=== PATIENT | male | born 1980 | race African-American/Black ===

== ENCOUNTER 2019-01-19 15:24 | Emergency (ER) | payer OTHER ==
[2019-01-19] MEDS ORDERED: EMS NS 0.9%(*) 1000 ML BAG 1,000 ML IV ONE (15:40)
[2019-01-19] MEDS ORDERED: HYDROMORPHONE HCL 1 MG/ML SYRINGE IVP ONE (15:40)
[2019-01-19] MEDS ORDERED: ONDANSETRON 4 MG/2 ML VIAL IVP ONE (15:40)
[2019-01-19] MEDS ORDERED: DIPHTH/TETANUS/ACEL. PERTUSSIS IM ONLY ONE (15:45)
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
[2019-01-19 16:06] LABS: PLATELET COUNT, AUTOMATED 160 K/uL (150-450)
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
[2019-01-19] MEDS ORDERED: KETAMINE HCL-NS 50 MG/5 ML SYR IVP ONE (18:30)
[2019-01-19] MEDS ORDERED: OXYC-865 PO (18:43)
[2019-01-19 19:00] VITALS: BP 157/89
[2019-01-19] MEDS ORDERED: oxyCODONE/ACETAMIN 5/325MG TH 2 TAB/BOTTLE PO ONE (19:05)
== END 2019-01-19 19:29 | disposition home or self-care (01) ==
LOC: ER 17:29
DX: S52.91XA Unspecified fracture of right forearm, initial encounter for closed fracture (principal); V89.2XXA Person injured in unspecified motor-vehicle accident, traffic, initial encounter; S00.01XA Abrasion of scalp, initial encounter; S30.810A Abrasion of lower back and pelvis, initial encounter; S80.211A Abrasion, right knee, initial encounter; M54.2 Cervicalgia
CPT/HCPCS: 29125; 70450; 71045; 72125; 73090; 73100; 73502; 85025; 90471; 90715; 96361; 96374; 96375; 99284; A4565; J1170; J2405; J3490; 82040; 82247; 82310; 82374; 82435; 82565; 82947; 84075; 84132; 84155; 84295; 84450; 84460; 84520